=== PATIENT | female | born 1980 | race Caucasian/White ===

== ENCOUNTER → 2021-09-27 11:55 | Outpatient (CLI) | payer OTHER, SELFPAY ==
--- NOTE | ~2021-09-27 | US_ITS ---
EXAMINATION: US thyroid EXAM DATE: 09/27/2021 12:15 INDICATION: E07.9 - Disorder of thyroid, unspecified. TECHNIQUE: Multiple grayscale and Doppler images of the thyroid were obtained (by a technologist who performed the scan) and subsequently reviewed. Individual nodules and recommendations may be reporte d in accordance with TI-RADS system as designated by the 2017 ACR White Paper TI-RADS committee. The re is no prior study for comparison. FINDINGS: The right thyroid lobe measures 5.5 x 2.0 x 1.7 cm, the left measuring 5.2 x 1.8 x 1.4 cm. Diffusely heterogeneous thyroid echogenicity. Possible several left thyroid lobe nodules 3 mm or less in size, not clinically significant findings. Dimensions of thyroid mildly enlarged. IMPRESSION: Mild thyromegaly. Reviewed, dictated and finalized at location G. IMPRESSION: Mild thyromegaly.
== END ==
PROVIDERS: Visit Provider Nurse Practitioner Family
DX: E07.9 Disorder of thyroid, unspecified (principal); E04.1 Nontoxic single thyroid nodule
CPT/HCPCS: 76536

== ENCOUNTER 2022-01-23 07:36 | Outpatient (CLI) | payer OTHER, SELFPAY ==
--- NOTE | 2022-02-08 21:24 | WPDHOMESLEEP ---
Sleep Study - Home Unattended Date of Study: 01/23/22 Ordering Provider: Simon Hagan MD Interpreting Provider: Aby Shah, DO Home Sleep Study Type: Watch PAT Height: 1.68 m Weight: 65.771 kg Body Mass Index: 23.3 Neck Circumference (inches): 13.75 [place]: 5 Reason for Sleep Study Snoring and morning headaches Sleep History The patient is a 41-year-old female with alopecia, Alicia's thyroiditis and GERD that had a sleep study ordered by her primary care physician for evaluation of sleep apnea. 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 She states that she has been snoring for the past 12 years. She occasionally awakens from sleep short of breath. She frequently awakens at night with heartburn. She frequently snores and is constantly loud enough that others complain. She constantly has trouble sleeping when she has a cold. She occasionally wakes up gasping for air throughout the night. She occasionally has breathing problems at night observed by herself or others. She occasionally sweats excessively at she rarely has heart palpitations irregular heartbeats during the night. He rarely falls asleep during the day and never while driving. She denies cataplexy. She occasionally has trouble at school or work due to sleepiness. She rarely feels unable to move when waking up her falling asleep. She frequently experiences vivid dreamlike scenes upon awakening or falling asleep. She denies feeling afraid of going to sleep. She occasionally has nightmares. She constantly remembers her dreams. She occasionally has thoughts racing through her mind. She occasionally feels sad, depressed and anxious. She occasionally has muscular tension. She occasionally notices parts of her body jerk. She rarely kicks during the night. She denies having crawling and aching feelings in her legs as well as leg pain during the night. She denies grinding her teeth during sleep and awakening with morning jaw pain. She denies being bothered by pain during the day and denies being awakened by pain during the night. She rarely wakes up feeling stiff in the morning. She rarely wakes up with sore or achy muscles. She rarely wakes up with pain in the neck, spine or other joints. She goes to bed at 11 to 11:30 p.m. weekdays and between midnight to 1:00 a.m. the weekends. It takes her 30-45 minutes to fall asleep. She wakes up 1-2 times throughout the night to catch her breath. She can take her anywhere from 10 minutes to an hours to fall back asleep. She wakes up between 7-730 a.m. on weekdays and at 9:00 a.m. the weekends. She typically gets 7-8 hours of sleep per night. She will stay in bed for 30 minutes after waking. She is currently living with her and 3 children. She does consume any caffeinated beverages within 2 hours of bedtime. She does not engage in physical exercise before bedtime. She will read and watch television before falling asleep. She denies taking naps in the afternoon the evening. She drinks 2 cups of coffee and 1 soda per day. She will smoke 1-2 cigarettes on days when she is consuming alcohol. He drinks 1 glass of wine per day. She denies recreational drug use. [facility] Past Medical History Medical History BMI 24.0-24.9, adult Body mass index [BMI] 22.0-22.9, adult Family History Family History Father Family history of premature coronary heart disease Grandparent Family history of premature coronary heart disease Diabetes mellitus Sibling Family history of premature coronary heart disease Mother No problems noted. Social History Social History Smoking status: Former smoker Second hand tobacco smoke exposure: No Alcohol intake: current Substance use: never Substance use type: does not use Additional occup
[2022-02-08 21:37] VITALS: BMI 23.3
== END 2022-01-24 10:59 | disposition home or self-care (01) ==
LOC: ANHCSM 08:27
PROVIDERS: PCP Family Medicine; Visit Provider Family Medicine
DX: G47.10 Hypersomnia, unspecified (principal); F51.8 Other sleep disorders not due to a substance or known physiological condition; R06.81 Apnea, not elsewhere classified; R06.83 Snoring
CPT/HCPCS: 95800

== ENCOUNTER 2022-04-21 07:56 | Outpatient (CLI) | payer OTHER, SELFPAY ==
--- NOTE | 2022-05-12 19:10 | WPDSLEEPSTUD ---
Sleep Study Date of Study: 04/21/22 Ordering Provider: Simon Hagan MD Interpreting Physician: Aby Shah, Sleep Study Type: Polysomnogram Height: 1.68 m Weight: 65.771 kg Body Mass Index: 23.3 Neck Circumference (inches): 13.5 [place]: 3 Reason for Sleep Study The patient had a home sleep study on 01/23/2022 that showed an overall AHI of 0.9. It was recommended that she have a Split Night study. Sleep History The patient is a 41-year-old female with alopecia, Alicia's thyroiditis and GERD that had a sleep study ordered by her primary care physician for evaluation of sleep apnea.? 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 She states that she has been snoring for the past 12 years.? She occasionally awakens from sleep short of breath.? She frequently awakens at night with heartburn.? She frequently snores and is constantly loud enough that others complain.? She constantly has trouble sleeping when she has a cold.? She occasionally wakes up gasping for air throughout the night.? She occasionally has breathing problems at night observed by herself or others.? She occasionally sweats excessively at she rarely has heart palpitations irregular heartbeats during the night.? He rarely falls asleep during the day and never while driving.? She denies cataplexy.? She occasionally has trouble at school or work due to sleepiness.? She rarely feels unable to move when waking up her falling asleep.? She frequently experiences vivid dreamlike scenes upon awakening or falling asleep.? She denies feeling afraid of going to sleep.? She occasionally has nightmares.? She constantly remembers her dreams.? She occasionally has thoughts racing through her mind.??She occasionally feels sad, depressed and anxious.? She occasionally has muscular tension.? She occasionally notices parts of her body jerk.? She rarely kicks during the night.? She denies having crawling and aching feelings in her legs as well as leg pain during the night.? She denies grinding her teeth during sleep and awakening with morning jaw pain.? She denies being bothered by pain during the day and denies being awakened by pain during the night.? She rarely wakes up feeling stiff in the morning.? She rarely wakes up with sore or achy muscles.? She rarely wakes up with pain in the neck, spine or other joints.? She goes to bed at 11 to 11:30 p.m. weekdays and between midnight to 1:00 a.m. the weekends.? It takes her 30-45 minutes to fall asleep.? She wakes up 1-2 times throughout the night to catch her breath.? She can take her anywhere from 10 minutes to an hours to fall back asleep.? She wakes up between 7-7:30 a.m. on weekdays and at 9:00 a.m. the weekends.? She typically gets 7-8 hours of sleep per night.? She will stay in bed for 30 minutes after waking.? She is currently living with her and 3 children.? She does consume any caffeinated beverages within 2 hours of bedtime.? She does not engage in physical exercise before bedtime.? She will read and watch television before falling asleep.? She denies taking naps in the afternoon the evening.? She drinks 2 cups of coffee and 1 soda per day.? She will smoke 1-2 cigarettes on days when she is consuming alcohol.? He drinks 1 glass of wine per day.? She denies recreational drug use. [facility] Past Medical History Medical History BMI 24.0-24.9, adult Body mass index [BMI] 22.0-22.9, adult Family History Family History Father Family history of premature coronary heart disease Grandparent Family history of premature coronary heart disease Diabetes mellitus Sibling Family history of premature coronary heart disease Mother No problems noted. Social History Social History Smoking status: Former smoker Second hand tobacco smoke exposure: No Alcohol intake:
[2022-05-12 19:20] VITALS: BMI 23.3
== END 2022-04-22 06:47 | disposition home or self-care (01) ==
LOC: ANHCSM 07:59
PROVIDERS: PCP Family Medicine; Visit Provider Family Medicine
DX: G47.10 Hypersomnia, unspecified (principal); G47.30 Sleep apnea, unspecified
CPT/HCPCS: 95810

== ENCOUNTER 2023-03-17 09:00 | Outpatient (NON) | payer OTHER, SELFPAY | END 2023-03-17 09:01 | disposition home or self-care (01) | PROVIDERS: PCP Family Medicine; Visit Provider Nurse Practitioner | DX: D23.5 Other benign neoplasm of skin of trunk (principal); D22.5 Melanocytic nevi of trunk | CPT/HCPCS: 88305 ==